=== PATIENT | female | born 1965 | race Two or more races ===

== ENCOUNTER → 2016-12-30 | Outpatient (CLI) | payer OTHER ==
--- NOTE | 2016-12-30 14:31 | RADIOLOGY REPORT (SQ) ---
EXAM DESCRIPTION: CT ABD/PELVIS WITH IV ONLY COMPLETED DATE/TIME: 12/30/2016 12:28 pm REASON FOR STUDY: R10.13 EPIGASTRIC PAIN K59.00 CONSTIPATION, UNSPECIFIED K14.0 ABDOMINAL DIS R10.13 EPIGASTRIC PAIN K59.00 CONSTIPATION, UNSPECIFIED R14.0 ABDOMINAL DISTENSION (GASEOUS) COMPARISON: None. TECHNIQUE: CT scan of the abdomen and pelvis performed using helical scanning technique with dynamic intravenous contrast injection. No oral contrast. Images reviewed with lung, soft tissue, and bone windows. Reconstructed coronal and sagittal MPR images reviewed. Delayed images for evaluation of the urinary system also acquired. All images stored on PACS. All CT scanners at this facility use dose modulation, iterative reconstruction, and/or weight based d osing when appropriate to reduce radiation dose to as low as reasonably achievable (ALARA). [facility]: Dose Right [facility]: CareDose [facility]: Dose Right [facility]: Teradose 4D [facility]: Loterity CONTRAST TYPE AND DOSE: contrast/concentration: Isovue 370.00 mg/ml; Total Contrast Delivered: 74.0 ml; Total Saline Delivered: 75.0 ml RENAL FUNCTION: GFR > 60. RADIATION DOSE: Up-to-date CT equipment and radiation dose reduction techniques were employed. CTDIv ol: 5.9 - 8.2 mGy. DLP: 768 mGy-cm.. LIMITATIONS: None. FINDINGS: LOWER CHEST: No significant findings. No nodules or infiltrates. LIVER: Normal size. No masses. No dilated ducts. SPLEEN: Normal size. No focal lesions. PANCREAS: No masses. No significant calcifications. No adjacent inflammation or peripancreatic fluid collections. Pancreatic duct not dilated. GALLBLADDER: No identified stones by CT criteria. No inflammatory changes to suggest cholecystitis. ADRENAL GLANDS: No significant masses or asymmetry. RIGHT KIDNEY AND URETER: No solid masses. No significant calcifications. No hydronephrosis or hyd roureter. LEFT KIDNEY AND URETER: No solid masses. No significant calcifications. No hydronephrosis or hydr oureter. AORTA AND VESSELS: No aneurysm. No dissection. Renal arteries, SMA, celiac without stenosis. RETROPERITONEUM: No retroperitoneal adenopathy, hemorrhage or masses. BOWEL AND PERITONEAL CAVITY: No masses or inflammatory changes. No free fluid or peritoneal masses. APPENDIX: Normal. PELVIS: Diffusely enlarged uterus. Multiple uterine fibroids. Largest is 4 cm. ABDOMINAL WALL: No masses. No hernias. BONES: No significant or acute findings. OTHER: No other significant finding. IMPRESSION: Diffusely enlarged fibroid uterus. No other significant abnormality. TECHNICAL DOCUMENTATION: JOB ID: [id number] Quality ID # [id number]: Final reports with documentation of one or more dose reduction techniques (e.g., Au tomated exposure control, adjustment of the mA and/or kV according to patient size, use of iterative reconstruction technique) 2010 [employer]- All Rights Reserved
== END ==
LOC: RAD 09:28
PROVIDERS: ATTEND Physician Assistant
DX: R10.13 Epigastric pain (principal); K59.00 Constipation, unspecified; R14.0 Abdominal distension (gaseous)
CPT/HCPCS: 74177

== ENCOUNTER 2017-06-02 05:10 | Day surgery (SDC) | payer OTHER ==
[2017-05-31 12:37] LABS: HEMATOCRIT 39.5 % (36.0-47.0); MEAN CORPUSCULAR HEMOGLOBIN 28.8 pg (27.0-33.4); MEAN CORPUSCULAR HGB CONC 32.9 g/dL (32.0-36.0); MEAN CORPUSCULAR VOLUME 88 fl (80-97); PLATELET COUNT 245 10^3/uL (150-450); RED CELL DISTRIBUTION WIDTH 12.8 % (11.5-14.0); WHITE BLOOD COUNT 5.4 10^3/uL (4.0-10.5)
[2017-05-31 12:51] LABS: APPEARANCE,URINE SLIGHTLY-CLOUDY; BILIRUBIN,URINE NEGATIVE (NEGATIVE); COLOR,URINE YELLOW; GLUCOSE, URINE NEGATIVE (NEGATIVE); KETONES,URINE NEGATIVE (NEGATIVE); LEUKOCYTE ESTERASE,URINE NEGATIVE (NEGATIVE); NITRITE,URINE NEGATIVE (NEGATIVE); PROTEIN,URINE NEGATIVE (NEGATIVE); URINE SPECIFIC GRAVITY 1.019; UROBILINOGEN,URINE NEGATIVE mg/dL (<2.0)
[2017-05-31 13:03] LABS: ANION GAP 13 (5-19); BLOOD UREA NITROGEN 15 mg/dL (7-20); CALCIUM 9.4 mg/dL (8.4-10.2); CARBON DIOXIDE 25 mmol/L (22-30); CHLORIDE 104 mmol/L (98-107); GLUCOSE 93 mg/dL (75-110); POTASSIUM 4.3 mmol/L (3.6-5.0); SODIUM 141.7 mmol/L (137-145)
--- NOTE | 2017-05-31 13:22 | RADIOLOGY REPORT (SQ) ---
EXAM DESCRIPTION: CHEST PA/LATERAL COMPLETED DATE/TIME: 05/31/2017 12:34 pm REASON FOR STUDY: PRE-OP COMPARISON: None. EXAM PARAMETERS: NUMBER OF VIEWS: two views TECHNIQUE: Digital Frontal and Lateral radiographic views of the chest acquired. RADIATION DOSE: NA LIMITATIONS: none FINDINGS: LUNGS AND PLEURA: No opacities, masses or pneumothorax. No pleural effusion. MEDIASTINUM AND HILAR STRUCTURES: No masses or contour abnormalities. HEART AND VASCULAR STRUCTURES: Heart normal size. No evidence for failure. BONES: No acute findings. HARDWARE: None in the chest. OTHER: No other significant finding. IMPRESSION: NO SIGNIFICANT RADIOGRAPHIC FINDING IN THE CHEST. TECHNICAL DOCUMENTATION: JOB ID: [id number] [employer]- All Rights Reserved Reading location - IP/workstation name: [email or web address]
--- NOTE | 2017-05-31 15:14 | EKG REPORT ---
SEVERITY:- NORMAL ECG - SINUS RHYTHM : Confirmed by: Alfredo Benitez 31-May-2017 15:12:52
[~2017-06-02 05:10] MED LIST: CEFAZOLIN 1 GM/D5W RTU 1 GM/50 ML RTUPB IV PRN; LACTATED RINGERS 1000 ML IV PRN; LIDOCAINE 0.5% INJ-PF (5 MG/ML) 50 ML SDV SUBCUT PRN
[2017-06-02] MEDS ORDERED: LIDOCAINE 1%/EPINEPHRINE INJ 20 ML VIAL ONE (06:37)
[2017-06-02] MEDS ORDERED: FENTANYL CITRATE INJ/PF 100 MCG/2 ML AMPUL ONE ×3 (06:48→09:18)
[2017-06-02] MEDS ORDERED: PROPOFOL INJ 200 MG/20 ML VIAL IV ONE (06:49)
[2017-06-02] MEDS ORDERED: ACETAMINOPHEN 100 ML IV ONE (06:49)
[2017-06-02] MEDS ORDERED: MIDAZOLAM 2 MG/2 ML INJ ONE (06:49)
[2017-06-02] MEDS ORDERED: FAMOTIDINE INJ/PF 20 MG/2 ML SDV IV ONE (07:12)
[2017-06-02] MEDS ORDERED: PROMETHAZINE HCL INJ 25 MG/1 ML VIAL IV PRN (07:59)
[2017-06-02] MEDS ORDERED: DIPHENHYDRAMINE HCL 50 MG/ML VIAL IV PRN (07:59)
[2017-06-02] MEDS ORDERED: MEPERIDINE HCL/PF INJ 25 MG/1 ML DISP.SYRIN IV PRN (07:59)
[2017-06-02] MEDS ORDERED: FENTANYL CITRATE INJ/PF 100 MCG/2 ML AMPUL IV PRN ×3 (07:59)
[2017-06-02] MEDS ORDERED: MORPHINE SULFATE 10 MG/ML INJ INJ PRN ×2 (09:41→09:42)
[2017-06-02] MEDS ORDERED: OXYCODONE-ACETAMINOPHEN 5-325 MG TABLET PO PRN (09:41)
[2017-06-02] MEDS ORDERED: PROMETHAZINE HCL INJ 25 MG/1 ML VIAL IM PRN (09:42)
[2017-06-02] MEDS ORDERED: MORPHINE SULFATE 10 MG/ML INJ IM PRN (09:42)
--- NOTE | 2017-06-02 09:58 | OPERATIVE REPORT E ---
Operative Report NAME: SYLVIA LOMAX : 1965 AGE: 52Y DATE OF SURGERY: 06/02/2017 ROOM: PREOPERATIVE DIAGNOSIS: UTERINE LEIOMYOMA. POSTOPERATIVE DIAGNOSIS: UTERINE LEIOMYOMA. OPERATION: Total vaginal hysterectomy with Mclean culdoplasty. SURGEON: CANDIE PRADO M.D. COMPLICATIONS: None. ANESTHESIA: General endotracheal. ESTIMATED BLOOD LOSS: 100 mL. FINDINGS: Findings are that of approximately a 14-week size uterus. No enterocele was noted. Normal tubes and ovaries appreciated. INDICATION OF PROCEDURE: The patient had symptomatic uterine leiomyoma and desired attempt at definitive therapy. The usual risks of bleeding, infection, anesthesia, and damage to organs or tissue were discussed and the patient understood. PROCEDURE: The patient was taken to the operating room and placed in modified lithotomy position after adequate anesthesia was ascertained, prepped and draped in the usual manner for a vaginal hysterectomy. The bladder was drained under sterile technique after a surgical timeout had been performed. EUA performed. Antibiotics had been given. Via a posterior colpotomy incision, the cul-de-sac was entered without difficulty and 1% lidocaine with epinephrine was infiltrated in the cervix as well as the vaginal cuff region. A total of 10 mL was used. The cervix was then circumcised and the bladder advanced sequentially during this aspect of the procedure using a combination of chromic catgut and clamps as well as a LigaSure advance device. The pedicles were developed and secured and progressed up the upper levels of the uterus. At this point, a coring technique was performed allowing mushrooming of the cervix and inversion of the uterus and allowed upper pedicles to be identified nicely, and these were suture ligated, free-tied, and cauterized. The parametrial tissues were noted to be dry at this point. The cervix and uterus handed off of the operative field. The pedicles were released and the vagina was then closed in an anterior/posterior fashion with interrupted #1 chromic catgut. The culdoplasty stitches had been placed in *------* procedure and tied at the completion of the procedure. At the conclusion of the procedure, all sponge and instrument counts were correct. The bladder was then drained, and patient taken to the recovery room in stable condition. DICTATING PHYSICIAN: CANDIE PRADO M.D. [id number] PHY#: [id number] ID: [id number] JOB#: [id number] ACCT: [id number] cc:CANDIE PRADO M.D. >
[2017-06-02] MEDS: CEFAZOLIN 1 GM/D5W RTU 1 GM/50 ML RTUPB IV SCH ×2 (11:21→16:52)
[2017-06-02] MEDS ORDERED: LIDOCAINE 2% INJ-PF (20 MG/ML) 2 ML AMPUL ONE (12:45)
[2017-06-02] MEDS ORDERED: KETOROLAC TROMETHAMINE 60 MG/2 ML SDV ONE (12:45)
[2017-06-02] MEDS ORDERED: METOCLOPRAMIDE HCL INJ/PF 10 MG/2 ML SDV ONE (12:45)
[2017-06-02] MEDS ORDERED: GLYCOPYRROLATE INJ 0.4 MG/2 ML VIAL ONE (12:45)
[2017-06-02] MEDS ORDERED: SUCCINYLCHOLINE CHLORIDE INJ 200 MG/10 ML VIAL ONE (12:45)
[2017-06-02] MEDS: IBUPROFEN 800 MG TABLET PO SCH (13:14)
[2017-06-03] MEDS: IBUPROFEN 800 MG TABLET PO SCH ×2 (06:24→07:17)
[2017-06-03 06:34] LABS: HEMATOCRIT 32.7 % (36.0-47.0); HEMOGLOBIN 11.1 g/dL (12.0-15.5); MEAN CORPUSCULAR HEMOGLOBIN 29.4 pg (27.0-33.4); MEAN CORPUSCULAR VOLUME 86 fl (80-97); PLATELET COUNT 193 10^3/uL (150-450); RED BLOOD COUNT 3.79 10^6/uL (3.72-5.28); RED CELL DISTRIBUTION WIDTH 12.8 % (11.5-14.0)
[2017-06-03 06:35] LABS: WHITE BLOOD COUNT 12.5 10^3/uL (4.0-10.5)
[2017-06-03 08:16] VITALS: BP 109/52
--- NOTE | 2017-07-21 09:10 | DISCHARGE SUMMARY E ---
Discharge Summary NAME: SYLVIA LOAMX : 1965 AGE: 52Y ADMITTED: 06/02/2017 DISCHARGED: 06/03/2017 HOSPITAL COURSE: This is a 52-year-old female admitted for same-day admission for total vaginal hysterectomy for symptomatic 14-week size uterine leiomyoma. The patient was same-day admission total vaginal hysterectomy and Mclean culdoplasty. Estimated blood loss was approximately 100 mL. Normal tubes and ovaries were appreciated. The patient did well, ambulatory, regular diet, no evidence of DVT, discharged 24 hours. Pathology pending. FINAL IMPRESSION: Uterine leiomyoma. PROCEDURES: 1. Total vaginal hysterectomy. 2. Mclean culdoplasty. DICTATING PHYSICIAN: CANDIE PRADO M.D. [id number] PHY#: [id number] ID: [id number] JOB#: [id number] ACCT: [id number] cc:CANDIE PRADO M.D. >
== END 2017-06-03 09:00 | disposition home or self-care (01) ==
LOC: OROUT 05:10 → EDSTATUS 07:15 → 2N 10:02 → OROUT 06-03 09:00
PROVIDERS: ATTEND Specialist
PROC: 0UT97ZZ Resection of Uterus, Via Natural or Artificial Opening (ICD-10-PCS; principal; 2017-06-02 07:15)
DX: D25.1 Intramural leiomyoma of uterus (principal); N80.0 Endometriosis of uterus; J45.909 Unspecified asthma, uncomplicated
CPT/HCPCS: 93005; 86900; 86901; 36415 ×2; 86850; 85027 ×2; 81025; 80048; 81001; 88307 ×2; 71046; 94799; 93010; 58260; J2250; J0690; J1885; J3010; J3490 ×2; J2765; J2270; J2550; J0330; J2704; S0028; J0131; 944

== ENCOUNTER → 2017-09-14 | Outpatient (CLI) | payer OTHER ==
--- NOTE | 2017-09-14 11:05 | WOMENS IMAGING REPORT ---
EXAM DESCRIPTION: BILAT DIAGNOSTIC MAMMO W/CAD; U/S BREAST UNILAT LIMITED COMPLETED DATE/TIME: 09/14/2017 10:15 am; 09/14/2017 10:55 am REASON FOR STUDY: BILATERAL DIAGNOSTIC MAMMO/ N63.20; LEFT BREAST LUMP N63.20 N63.20 UNSPECIFIED CAROLEE MP IN THE LEFT BREAST, UNSPECIFIED QUAD COMPARISON: 12/23/2015. TECHNIQUE: Standard craniocaudal and mediolateral oblique views of each breast recorded using digita l acquisition. Additional "push-back" craniocaudal and mediolateral oblique images acquired. Additional true lateral and spot compression MLO and CC images of the left breast. LIMITATIONS: None. FINDINGS: IMPLANTS: Bilateral subglandular implants. RIGHT BREAST MASSES: No suspicious masses. CALCIFICATIONS: No new or suspicious calcifications. ARCHITECTURAL DISTORTION: None. DEVELOPING DENSITY: None. ASYMMETRY: None noted. OTHER: No other significant findings. LEFT BREAST MASSES: No suspicious masses. CALCIFICATIONS: No new or suspicious calcifications. ARCHITECTURAL DISTORTION: None. DEVELOPING DENSITY: None. ASYMMETRY: None noted. OTHER: No other significant finding. Read with the assistance of CAD: .[facility] - R2 Cenova Version 1.3 .[facility] Imaging - R2 Cenova Version 1.3 .[facility] Imaging - R2 Cenova Version 2.4 .[facility] - R2 Cenova Version 2.4 .[facility] - R2 Touch [employer] Painter Hand Version 9.2 BREAST ULTRASOUND: TECHNIQUE: Static and dynamic grayscale images acquired of the left breast in the specific areas of c linical/mammographic concern. Selected color Doppler images recorded. ELASTOGRAPHY PERFORMED: No. LIMITATIONS: None. FINDINGS: MASS: In the 1- 2 o'clock location there is an anechoic cyst measuring 1.1 x 2.1 x 2.7 cm. Smooth ma rgins. No internal echoes. Distal acoustic enhancement. No solid mass identified. Normal glandula r tissue. ELASTOGRAPHY CHARACTERISTICS: Not applicable. OTHER: No other significant finding. IMPRESSION: Stable mammographic appearance of both breasts. The palpable finding in the left breast is due to a simple cyst. No worrisome mammographic or sonographic findings. BREAST DENSITY: c. The breasts are heterogeneously dense, which may obscure small masses. BIRAD: 2 Benign findings. RECOMMENDATION: RECOMMENDED FOLLOW UP: Birads 1 or 2: The patient should resume routine screening . SPECIFIC INTERVENTION/IMAGING/CONSULTATION RECOMMENDED:No additional intervention/ imaging/consultati on needed at this time. COMMUNICATION:The imaging findings were not discussed with the patient. Her referring provider has be en notified of the findings. COMMENT: The patient has been notified of the results by letter per SA requirements. Additional no tification policies are in place for contacting patient with suspicious or incomplete findings. Quality ID #225: The [employer] recommends an annual screening mammogram for women aged 40 years or over. This facility utilizes a reminder system to ensure that all patients receive reminder letters, and/or direct phone calls for appointments. This includes reminders for routine scr eening mammograms, diagnostic mammograms, or other Breast Imaging Interventions when appropriate. Th is patient will be placed in the appropriate reminder system. The [employer] (ACR) has developed recommendations for screening MRI of the breast s in certain patient populations, to be used in conjunction with mammography. Breast MRI surveillanc e may be appropriate for women with more than 20% lifetime risk of developing breast cancer as deter mined by genetic testing, significant family history of the disease, or history of mantle radiation f or Hodgkins Disease. ACR Practice Guidelines 2008. TECHNICAL DOCUMENTATION: FINDING NUMBER: (1) ASSESSMENT: (1) JOB ID: [id number] [employer]- All Rights Reserved Reading location - IP/workstation name: [facility]
--- NOTE | 2017-09-14 11:05 | WOMENS IMAGING REPORT ---
EXAM DESCRIPTION: BILAT DIAGNOSTIC MAMMO W/CAD; U/S BREAST UNILAT LIMITED COMPLETED DATE/TIME: 09/14/2017 10:15 am; 09/14/2017 10:55 am REASON FOR STUDY: BILATERAL DIAGNOSTIC MAMMO/ N63.20; LEFT BREAST LUMP N63.20 N63.20 UNSPECIFIED CAROLEE MP IN THE LEFT BREAST, UNSPECIFIED QUAD COMPARISON: 12/23/2015. TECHNIQUE: Standard craniocaudal and mediolateral oblique views of each breast recorded using digita l acquisition. Additional "push-back" craniocaudal and mediolateral oblique images acquired. Additional true lateral and spot compression MLO and CC images of the left breast. LIMITATIONS: None. FINDINGS: IMPLANTS: Bilateral subglandular implants. RIGHT BREAST MASSES: No suspicious masses. CALCIFICATIONS: No new or suspicious calcifications. ARCHITECTURAL DISTORTION: None. DEVELOPING DENSITY: None. ASYMMETRY: None noted. OTHER: No other significant findings. LEFT BREAST MASSES: No suspicious masses. CALCIFICATIONS: No new or suspicious calcifications. ARCHITECTURAL DISTORTION: None. DEVELOPING DENSITY: None. ASYMMETRY: None noted. OTHER: No other significant finding. Read with the assistance of CAD: .[facility] - R2 Cenova Version 1.3 .[facility] Imaging - R2 Cenova Version 1.3 .[facility] Imaging - R2 Cenova Version 2.4 .[facility] - R2 Cenova Version 2.4 .[facility] - R2 Side Boss Version 9.2 BREAST ULTRASOUND: TECHNIQUE: Static and dynamic grayscale images acquired of the left breast in the specific areas of c linical/mammographic concern. Selected color Doppler images recorded. ELASTOGRAPHY PERFORMED: No. LIMITATIONS: None. FINDINGS: MASS: In the 1- 2 o'clock location there is an anechoic cyst measuring 1.1 x 2.1 x 2.7 cm. Smooth ma rgins. No internal echoes. Distal acoustic enhancement. No solid mass identified. Normal glandula r tissue. ELASTOGRAPHY CHARACTERISTICS: Not applicable. OTHER: No other significant finding. IMPRESSION: Stable mammographic appearance of both breasts. The palpable finding in the left breast is due to a simple cyst. No worrisome mammographic or sonographic findings. BREAST DENSITY: c. The breasts are heterogeneously dense, which may obscure small masses. BIRAD: 2 Benign findings. RECOMMENDATION: RECOMMENDED FOLLOW UP: Birads 1 or 2: The patient should resume routine screening . SPECIFIC INTERVENTION/IMAGING/CONSULTATION RECOMMENDED:No additional intervention/ imaging/consultati on needed at this time. COMMUNICATION:The imaging findings were not discussed with the patient. Her referring provider has be en notified of the findings. COMMENT: The patient has been notified of the results by letter per SA requirements. Additional no tification policies are in place for contacting patient with suspicious or incomplete findings. Quality ID #225: The [employer] recommends an annual screening mammogram for women aged 40 years or over. This facility utilizes a reminder system to ensure that all patients receive reminder letters, and/or direct phone calls for appointments. This includes reminders for routine scr eening mammograms, diagnostic mammograms, or other Breast Imaging Interventions when appropriate. Th is patient will be placed in the appropriate reminder system. The [employer] (ACR) has developed recommendations for screening MRI of the breast s in certain patient populations, to be used in conjunction with mammography. Breast MRI surveillanc e may be appropriate for women with more than 20% lifetime risk of developing breast cancer as deter mined by genetic testing, significant family history of the disease, or history of mantle radiation f or Hodgkins Disease. ACR Practice Guidelines 2008. TECHNICAL DOCUMENTATION: FINDING NUMBER: (1) ASSESSMENT: (1) JOB ID: [id number] [employer]- All Rights Reserved Reading location - IP/workstation name: [facility]
== END ==
LOC: WI 09:16
PROVIDERS: ATTEND Physician Assistant
DX: N60.02 Solitary cyst of left breast (principal); Z98.82 Breast implant status
CPT/HCPCS: 76642; 77066